=== PATIENT | female | born 1955 | race American Indian/Alaskan Native ===

== ENCOUNTER 2019-01-13 18:29 | Inpatient (IN) | payer BC, MEDICAID, MEDICARE ==
[2019-01-13 18:36] VITALS: BMI 26.2
--- NOTE | 2019-01-13 19:16 | C.PDOC ---
History Of Present Illness Patient presents to the ER with elevated blood pressure, dizziness, and headache. She reports feeling intermittently jittery for the past 2 weeks, saw her PMD who sent her in for evaluation. Denies chest pain, SOB, or palpitations. Time Seen by Provider: 01/13/19 19:16 Chief Complaint (Nursing): High Blood Pressure History Per: Patient History/Exam Limitations: no limitations Onset/Duration Of Symptoms: Days Current Symptoms Are (Timing): Still Present Associated Symptoms: Dizziness, Headache Severity: Moderate Pain Scale Rating Of: 4 Recent travel outside of the [place]: No Additional History Per: Family Past Medical History Reviewed: Historical Data, Nursing Documentation, Vital Signs Vital Signs: Last Vital Signs Temp 98.8 F 01/13/19 18:36 Pulse 68 01/13/19 18:36 Resp 20 01/13/19 18:36 BP 157/88 H 01/13/19 18:36 Pulse Ox 99 01/13/19 18:36 Primary Care Provider: Nathanael Cannon - Medical History PMH: Anxiety, Arthritis, Back Problems, Bronchitis, Cardia Arrhythmia (told to have had irregular rhythm in the past), COPD, CVA (?), Depression, HTN, Hypothyroidism (denies), TIA Denies: Chronic Kidney Disease Surgical History: Cholecystectomy - [facility] APPLICATION OF SPLINT (03/14/15) Family History: States: No Known Family Hx - Social History Hx Tobacco Use: No Hx Alcohol Use: No Hx Substance Use: No - Immunization History Hx Tetanus Toxoid Vaccination: No Hx Influenza Vaccination: No Hx Pneumococcal Vaccination: No Review Of Systems Constitutional: Negative for: Fever, Chills Eyes: Negative for: Redness Cardiovascular: Negative for: Chest Pain, Palpitations Respiratory: Negative for: Cough, Shortness of Breath Gastrointestinal: Negative for: Nausea, Vomiting Genitourinary: Negative for: Dysuria Musculoskeletal: Negative for: Back Pain Skin: Negative for: Rash Neurological: Positive for: Headache, Dizziness. Negative for: Weakness, Numbness Psych: Negative for: Anxiety Physical Exam - Physical Exam Appears: Non-toxic Skin: Warm, Dry Head: Normacephalic Eye(s): bilateral: Normal Inspection, PERRL, EOMI Oral Mucosa: Moist Neck: Trachea Midline, Supple Chest: Symmetrical, No Tenderness Cardiovascular: Rhythm Regular Respiratory: No Rales, No Rhonchi, No Wheezing Gastrointestinal/Abdominal: Soft, No Tenderness Back: No CVA Tenderness Extremity: No Tenderness Extremity: Bilateral: Atraumatic, Normal Color And Temperature, Normal ROM Pulses: Left Dorsalis Pedis: Normal, Right Dorsalis Pedis: Normal Neurological/Psych: Oriented x3, Other (No focal deficit) Gait: Steady ED Course And Treatment - Laboratory Results Result Diagrams: 01/13/19 19:42 01/13/19 19:42 ECG: Interpreted By Me, Viewed By Me ECG Rhythm: Sinus Rhythm (57), 1st Degree HB, Nonspecific Changes O2 Sat by Pulse Oximetry: 99 (Room air) Pulse Ox Interpretation: Normal - Radiology CXR: Interpreted by Me, Viewed By Me CXR Interpretation: No: Infiltrates, Fracture, Pnemothorax Progress Note: CT head, EKG, blood work, CXR, and urinalysis ordered. NIHSS Stroke Scale - Date/Time Evaluation Performed Date Performed: 01/13/19 Time Performed: 19:16 When Was NIHSS Performed: Baseline - How Severe is the Stoke Level of Consciousness: 0=Alert LOC to Questions: 0=Both comments correct LOC to commands: 0=Obeys both correctly Best Gaze: 0=Normal Visual: 0=No visual loss Facial: 0=Normal Motor Arm - Left: 0=No drift Motor Arm - Right: 0=No drift Motor Leg - Left: 0=No drift Motor Leg - Right: 0=No drift Limb Ataxia: 0=Absent Sensory: 0=Normal Best Language: 0=No aphasia Dysarthia: 0=Normal articulation Extinction & Inattention (Neglect): 0=Normal, no object Score: 0 Disposition Discussed With : Nathanael Cannon Comment[facility] took over the care at 9:55 PM Doctor Will See Patient In The: Hospital Counseled Patient/Family Regarding: Studies Performed, Diagnosis - Disposition Disposition: HOSPITALIZED Disposition Time: 19:16 Condition: FAIR Forms: [facility] (Amharic) - POA Present On Arrival: None - Clinical Impression Clinical Impression: Dizziness, Hypertension, Abnormal liver enzymes - Scribe Statement The provider has reviewed the documentation as recorded by the Scribe Jl Medina All medical record entries made by the Scribe were at my direction and personally dictated by me. I have reviewed the chart and agree that the record accurately reflects my personal performance of the history, physical exam, medical decision making, and the department course for this patient. I have also personally directed, reviewed, and agree with the discharge instructions and disposition. Decision To Admit - Pt Status Changed To: Hospital Disposition Of: Observation - . Bed Request Type: Telemetry Admitting Physician: Nathanael Cannon Patient Diagnosis: Dizziness, Hypertension, Abnormal liver enzymes
[2019-01-13 19:52] LABS: BASO % 0.2 % (0.0-2.0); EOS # 0.1 K/uL (0.0-0.7); LYMPH # 1.2 K/uL (1.0-4.3); LYMPH % 19.4 % (20.0-40.0); MEAN CELL VOLUME 94.2 fL (81.0-99.0); MEAN CORPUSCULAR HGB CONC 32.9 g/dL (33.0-37.0); MEAN PLATELET VOLUME 6.5 fL (7.2-11.7); MONO # 0.3 K/uL (0.0-0.8); MONO % 4.1 % (0.0-10.0); NEUT # 4.8 K/uL (1.8-7.0); NEUT % 75.3 % (50.0-75.0); RBC 4.2 Mil/uL (3.80-5.20); RED CELL DISTRIBUTION WIDTH 13.4 % (11.5-14.5); WHITE BLOOD COUNT 6.4 K/uL (4.8-10.8)
[2019-01-13 20:01] LABS: INR 1.1; PARTIAL THROMBOPLASTIN TIME 37.8 SECONDS (21-34); PROTHROMBIN TIME 12.3 SECONDS (9.7-12.2)
[2019-01-13 20:11] LABS: ALB/GLOB RATIO 1.3 (1.0-2.1); ALBUMIN 4.2 g/dL (3.5-5.0); ALT/SGPT 196 U/L (9-52); AST/SGOT 269 U/L (14-36); BLOOD UREA NITROGEN 12 mg/dL (7-17); CALCIUM 9.4 mg/dl (8.6-10.4); GFR NON-AFRICAN AMERICAN > 60; LIPASE 65 U/L (23-300)
[2019-01-13 22:05] LABS: SQUAMOUS EPITHIAL 1 /hpf (0-5); URINE BILIRUBIN NEGATIVE (NEGATIVE); URINE BLOOD NEGATIVE (NEGATIVE); URINE CLARITY Hazy (Clear); URINE COLOR Yellow (YELLOW); URINE GLUCOSE (UA) NORMAL (Normal); URINE LEUKOCYTE ESTERASE NEG Leu/uL (Negative); URINE PROTEIN NEGATIVE (NEGATIVE)
[2019-01-13] MEDS ORDERED: Albuterol 0.083% Inhal Sol (2.5 mg/3 mL) UD IH PRN (22:13)
--- NOTE | 2019-01-14 08:06 | CT ---
Date of service: 01/13/2019 PROCEDURE: CT HEAD WITHOUT CONTRAST. HISTORY: dizziness COMPARISON: 02/01/2015 TECHNIQUE: Axial computed tomography images were obtained through the head/brain without intravenous contrast. Radiation dose: Total exam DLP = 1057.82 mGy-cm. This CT exam was performed using one or more of the following dose reduction techniques: Automated exposure control, adjustment of the mA and/or kV according to patient size, and/or use of iterative reconstruction technique. FINDINGS: HEMORRHAGE: No intracranial hemorrhage. BRAIN: No mass effect or edema. Scattered focal lucencies in the subcortical and periventricular white matter suggestive for chronic microvascular ischemic change. VENTRICLES: Unremarkable. No hydrocephalus. CALVARIUM: Unremarkable. PARANASAL SINUSES: Unremarkable as visualized. No significant inflammatory changes. MASTOID AIR CELLS: Unremarkable as visualized. No inflammatory changes. OTHER FINDINGS: None. IMPRESSION: No acute intracranial abnormality. If symptoms persists, consider correlation with MRI. A preliminary report was generated at 9:23 p.m. on 01/13/[address] Owen Orlando from [facility].
[2019-01-14] MEDS ORDERED: Albuterol 0.083% Inhal Sol (2.5 mg/3 mL) UD IH PRN (08:30)
[2019-01-14] MEDS ORDERED: Home Med 1 UNIT (Alendronate [Fosamax] 70 MG) PO SCH (10:00)
--- NOTE | 2019-01-14 10:34 | RAD ---
HISTORY: chest pain COMPARISON: Chest xray performed 01/14/16 TECHNIQUE: Chest, one view. FINDINGS: LUNGS: No focal consolidation. Please note that chest x-ray has limited sensitivity for the detection of pulmonary masses. PLEURA: No significant pleural effusion identified. No definite pneumothorax . CARDIOVASCULAR: Mild cardiomegaly. Atherosclerotic calcifications of the aorta present. OSSEOUS STRUCTURES: No acute osseous abnormality identified. VISUALIZED UPPER ABDOMEN: Unremarkable. OTHER FINDINGS: None. IMPRESSION: No focal consolidation. Mild cardiomegaly.
--- NOTE | 2019-01-14 12:10 | CARD ---
APPROVED REPORT Date of service: 01/13/2019 EKG Measurement Heart [id number] [id number] <Conclusion> Sinus bradycardia Nonspecific T wave abnormality Abnormal ECG
[2019-01-14] MEDS ORDERED: methIMAzole 5 MG TAB PO SCH ×2 (22:00)
[2019-01-14] MEDS ORDERED: ZOLPIDEM PO SCH ×2 (22:00)
--- NOTE | 2019-01-14 22:08 | CP.PCM.HP ---
History of Present Illness - History of Present Illness History of Present Illness: cc: labile hypertension, unsteady gait, obtunded mentation, anorexia HPI: Pt is a 63 yo AA female who called my office 01/13/2019 around 3 pm wherein reported that pt's BP was going up and down from a low of 120s to 130s to 150s, then 190s systolic. For the last 4 months, I had started receiving these calls and had managed to reassure pt until the next scheduled office visit, usually every 3 months. Pt had been my patient for the last ~3-4 years, and when she first came to my office, was having the same issues with headache, dizziness, inability to get up out of bed, slow & almost slurred speech. On hindsight, pt seems to have regressed again to that point after steadily improving over several years. Present on Admission - Present on Admission Any Indicators Present on Admission: No History of DVT/PE: No History of Uncontrolled Diabetes: No Urinary Catheter: No Decubitus Ulcer Present: No History Surgical Site Infection Following: None Review of Systems - Review of Systems Systems not reviewed;Unavailable: Unstable Vital Signs, Altered Mental Status, I ntoxicated - Constitutional Constitutional: Anorexia, Daytime Sleepiness, Fatigue, Frequent Falls, Headache, Lethargy, Weakness - EENT Eyes: Blind Spots, Other Visual Disturbances Nose/Mouth/Throat: Nasal Congestion, Post Nasal Drip, Sore Throat - Breasts Breasts: Other (no changes reported to resemble peau d'orange, retraction, discharge, color change, friability) - Respiratory Respiratory: Cough, Chest Congestion - Gastrointestinal Gastrointestinal: Bloating, Change in Bowel Habits, Coffee Ground Emesis, Constipation, Cramping, Early Satiety, Heartburn Additional comments: no heartburn, no burning at epigastric area, coughing when lying down - Genitourinary Genitourinary: Urinary Incontinence Additional comments: + stress urinary incontinence - Reproductive: Female Reproductive:Female: Amenorrhea (menopausal) - Menstruation Menstruation: Amenorrhea - Musculoskeletal Musculoskeletal: Back Pain, Muscle Weakness, Myalgias - Integumentary Integumentary: Dry Skin, Skin Pain Past Patient History - Infectious Disease Hx of Infectious Diseases: None - Tetanus Immunizations Tetanus Immunization: Unknown - Past Medical History & Family History Past Medical History?: Yes - Past Social History Smoking Status: Never Smoked Chewing Tobacco Use: No Cigar Use: No Alcohol: Social Drugs: Prescription medications Home Situation {Lives}: With Family, Other (with ) Domestic Violence: Negative - CARDIAC Hx Hypertension: Yes Hx Hypotension: Yes Hx Peripheral Edema: Yes - PULMONARY Hx Chronic Obstructive Pulmonary Disease (COPD): Yes - NEUROLOGICAL Hx Dizziness: Yes Hx Migraine: Yes Hx Syncope: Yes (near syncope only) Hx Transient Ischemic Attacks (TIA): Yes Other/Comment: may be hypochondriacal or 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 - HEENT Hx HEENT Problems: No Hx Sinusitis: Yes - RENAL Hx Chronic Kidney Disease: No - ENDOCRINE/METABOLIC Hx Hypothyroidism: Yes (denies) - HEMATOLOGICAL/ONCOLOGICAL Hx Blood Disorders: No - INTEGUMENTARY Hx Dermatological Problems: No - MUSCULOSKELETAL/RHEUMATOLOGICAL Hx Arthritis: Yes Other/Comment: has frequent myalgia with no identifiable etiology - GASTROINTESTINAL Hx Gastrointestinal Disorders: Yes Hx Gastritis: Yes Hx Gastroesophageal Reflux: Yes Hx Nausea: Yes Other/Comment: Gall Stones - GENITOURINARY/GYNECOLOGICAL Hx Genitourinary Disorders: No - PSYCHIATRIC Hx Anxiety: Yes Hx Depression: Yes Hx Panic Symptoms: Yes Hx Paranoia: Yes Hx Substance Use: No - SURGICAL HISTORY Hx Cholecystectomy: Yes - ANESTHESIA Hx Anesthesia: Yes Hx Anesthesia Reactions: No Hx Malignant Hyperthermia: No Meds Allergies/Adverse Reactions: Allergies Allergy/AdvReac Type Severity Reaction Status Date / Time Penicillins Allergy Verified 01/13/19 18:36 Physical Exam - Constitutional Appears: Well, In Acute Distress Additional comments: though not pain, appears more disoriented - Head Exam Head Exam: ATRAUMATIC, NORMAL INSPECTION, NORMOCEPHALIC - Eye Exam Eye Exam: EOMI, PERRL Pupil Exam: NORMAL ACCOMODATION, PERRL Additional comments: eyelids half-closed and unable to focus well, appears over dosing on something - ENT Exam ENT Exam: Mucous Membranes Dry - Neck Exam Neck exam: Positive for: Full Rom, Normal Inspection - Respiratory Exam Respiratory Exam: Clear to Auscultation Bilateral, NORMAL BREATHING PATTERN - Cardiovascular Exam Cardiovascular Exam: REGULAR RHYTHM, RRR - GI/Abdominal Exam GI & Abdominal Exam: Normal Bowel Sounds, Soft. absent: Tenderness - Rectal Exam Rectal Exam: NORMAL INSPECTION - Exam Exam: Circumcision, NORMAL INSPECTION External exam: NORMAL EXTERNAL EXAM Speculum exam: NORMAL SPECULUM EXAM Bimanual exam: NORMAL BIMANUAL EXAM - Extremities Exam Extremities exam: Positive for: normal inspection - Back Exam Back exam: NORMAL INSPECTION - Neurological Exam Neurological exam: Alert, CN II-XII Intact, Normal Gait, Oriented x3, Reflexes Normal - Psychiatric Exam Psychiatric exam: Normal Affect, Normal Mood - Skin Skin Exam: Dry, Intact, Normal Color, Warm Results - Vital Signs Recent Vital Signs: Last Vital Signs Temp 99.4 F 01/14/19 15:00 Pulse 72 01/14/19 16:30 Resp 20 01/14/19 15:00 BP 115/71 01/14/19 15:00 Pulse Ox 97 01/14/19 16:30 - Labs Result Diagrams: 01/15/19 08:24 01/15/19 08:24 Labs: Laboratory Results - last 24 hr 01/13/19 21:18 Urine Color Yellow Urine Clarity Hazy Urine pH 5.0 Ur Specific [place] 1.018 Urine Protein Negative Urine Glucose (UA) Normal Urine Ketones Negative Urine Blood Negative Urine Nitrate Negative Urine Bilirubin Negative Urine Urobilinogen 2.0 H Ur Leukocyte Esterase Neg Urine WBC (Auto) 2 Urine RBC (Auto) 1 Ur Squamous Epith Cells 1 Assessment & Plan (1) Dizziness Assessment and Plan: present and unable to stand without assistance Status: Acute (2) Hypertension Assessment and Plan: very labile bp with sbp from 130s to 190s withn a miute or so. ? overmedicated as well? Pt does not appear to read instructions on botles Status: Chronic Priority: Medium (3) Abnormal finding on EKG Assessment and Plan: HR bradycardic, when it's always been normal with me at the office. Status: Acute Priority: High (4) Uncontrolled hypertension Assessment and Plan: will discontinue some meds and see if things will normalize Status: Acute Priority: High (5) CVA (cerebral vascular accident) Assessment and Plan: remote past. laura consult Neurology for pt evaluation Status: Chronic Priority: Medium (6) Neuropathy Assessment and Plan: difficult to ascertain whether pain is from not enough movement/exercise since pt's caters to pt's every whim Status: Chronic Priority: High (7) Abnormal liver enzymes Assessment and Plan: suspect prob from excessive intake of meds. will dic meds that i think are optinal and observe result with pt's labs. Status: Acute Decision To Admit - Pt Status Changed To: Hospital Disposition Of: Observation - Admit Certification Admit to Inpatient:: Admit pt to lelemetry for observation. Pt's condition currently unstable and unsafe for her to go home since she will be alone most days and likely to injure herself in this conditon. Will follow pt's course and see if pt improves with conservative mgt. - . Bed Request Type: Telemetry
--- NOTE | 2019-01-14 22:22 | CON ---
DATE: 01/14/2019 REASON FOR CONSULTATION: Dizziness. HISTORY OF PRESENT ILLNESS: The patient is a 63-year-old female who has been asked for evaluation of dizziness. The patient says yesterday she started experiencing dizziness which is described as a spinning sensation as well as lightheaded feeling. She was nauseous with it. She was also experiencing some blurred vision. This morning, she is feeling a lot better. Denies any focal weakness in her arms or legs. Denies any loss of vision. REVIEW OF SYSTEMS: Denies any headaches, chest pain, shortness of breath, abdominal pain, constipation, diarrhea, cough, sputum production, focal weakness in the arms or legs, hallucination, skin rash. PAST MEDICAL HISTORY: Includes hypertension, COPD, anxiety. MEDICATIONS: Her medications at home included amlodipine, Ambien, Lyrica 50 mg daily, Bystolic, methimazole, Losartan, Neurontin, aspirin, Fosamax, albuterol, Tylenol with Codeine, Xanax, Topamax, Losartan, aspirin, alendronate, alprazolam. ALLERGIES: PENICILLIN. SOCIAL HISTORY: Denies smoking, use of alcohol or use of any illicit drugs. FAMILY HISTORY: Reviewed and noncontributory to the case. PHYSICAL EXAMINATION: GENERAL: The patient is an elderly female, lying on the bed, in no acute distress. VITAL SIGNS: Blood pressure is 153/81, heart rate 71 per minute, breathing at the rate of 16 per minute, temperature 97.9 degrees Fahrenheit. HEENT: Normocephalic, atraumatic. NECK: Supple. There are no carotid bruits. LUNGS: Clear. CVS: S1 and S2 audible. No murmurs. ABDOMEN: Soft, nontender. Bowel sounds present. NEUROLOGIC: Mental status: The patient is awake and alert; oriented to time, place, and person. Speech is fluent. Naming and repetition are normal. Memory and cognition are intact. Cranial nerve examination: Pupils are 4 mm bilaterally, reactive to light. Visual mehta are full. Extraocular movements are intact. There is no facial asymmetry. Palate is upgoing bilaterally and tongue is midline. Motor examination: Tone is normal. Power is 5/5 bilaterally in all extremities. Reflexes are +1 and symmetrical. Plantars are downgoing bilaterally. Cerebellar examination: [id number] shows no dysmetria. Gait is deferred at the moment. No asterixis is seen. LABORATORY DATA: Reviewed showed WBC 6.4, hemoglobin 13, hematocrit of 39.6, and platelets of 383. Her INR is 1.1. Sodium is 137, potassium 4, chloride 101, carbon dioxide 30, BUN of 12, creatinine of 0.5, and glucose of 121. Her AST is 269, ALT is 196. The patient had a CT scan of the head done which shows no acute intracranial abnormality. IMPRESSION: Dizziness, likely secondary to labyrinthine dysfunction, any central etiology to be ruled out. RECOMMENDATIONS: 1. The patient to have an MRI of the brain without contrast. 2. The patient to be started on low dose of meclizine. 3. The patient to be started on physical therapy for gait and balance. 4. The patient will be worked up for her elevated LFTs. 5. Please continue the treatment and supportive care. Thank you for the opportunity to participate in the care of this patient. Alondra Montalvo MD
[2019-01-15 08:42] LABS: MEAN CELL VOLUME 92.6 fL (81.0-99.0); MEAN CORPUSCULAR HEMOGLOBIN 31.6 pg (27.0-31.0); MEAN CORPUSCULAR HGB CONC 34.2 g/dL (33.0-37.0); MEAN PLATELET VOLUME 6.7 fL (7.2-11.7); RBC 3.79 Mil/uL (3.80-5.20); RED CELL DISTRIBUTION WIDTH 13.4 % (11.5-14.5)
[2019-01-15 08:44] LABS: IRON 72 ug/dL (37-170)
[2019-01-15 08:54] LABS: % IRON SATURATION 27 (20-55); TOTAL IRON BINDING CAPACITY 263 ug/dL (250-450)
[2019-01-15 08:59] LABS: ALBUMIN 3.9 g/dL (3.5-5.0); BLOOD UREA NITROGEN 11 mg/dL (7-17); CALCIUM 9.3 mg/dl (8.6-10.4); GFR NON-AFRICAN AMERICAN > 60
[2019-01-15 09:00] LABS: ALB/GLOB RATIO 1.3 (1.0-2.1); ALT/SGPT 105 U/L (9-52); AST/SGOT 71 U/L (14-36); BILIRUBIN,DIRECT 0.1 mg/dL (0.0-0.4)
[2019-01-15 09:03] LABS: FREE T4 1.03 ng/dL (0.78-2.19)
--- NOTE | 2019-01-15 16:32 | MRI ---
Date of service: 01/15/2019 PROCEDURE: MRI BRAIN WITHOUT CONTRAST HISTORY: Dizziness COMPARISON: CT head without contrast from 01/13/2019. TECHNIQUE: Multiplanar, multisequence MR images of the brain were obtained without intravenous contrast enhancement. FINDINGS: HEMORRHAGE: None DWI: No evidence of an acute or early subacute infarction. BRAIN PARENCHYMA: There are mild chronic microangiopathic changes. There is no mass, mass effect or abnormal extra-axial fluid collection. There is no territorial infarction. There is an empty sella. VENTRICLES: There is mild age-related global parenchymal volume loss and proportionate enlargement of the ventricles and cortical sulci. CRANIUM: Unremarkable. ORBITS: Grossly unremarkable. PARANASAL SINUSES/MASTOIDS: Clear VASCULAR SYSTEM: Skull base flow voids intact. OTHER FINDINGS: None. IMPRESSION: No acute intracranial abnormality. Mild chronic microangiopathic changes and mild age-related global parenchymal volume loss.
--- NOTE | 2019-01-16 05:52 | CP.PCM.PN ---
Subjective - Date & Time of Evaluation Date of Evaluation: 01/15/19 Time of Evaluation: 18:30 - Subjective Subjective: Pt seen and examined. Appears more awake, more alive than ever. Had consulted Neurology to whom I referrred pt fromt he office. Suggests MRIof he brain to complete work up. Agree with test.. Pt reports that she gets claustrophobic andmay need premedication. Otherwise, pt has been tolerating foods given. Weakness and dizziness decreased though per PT, pt still has balance issues. Pt has reported to me in the past of her legs just giving way without trippping or losing her footing. Said falls not preceded by sudden knee pain or anything of the sort. Awaiting results of MRI and as of this time, leaning towards TCU transfer if pt will be accepted. Objective - Vital Signs/Intake and Output Vital Signs (last 24 hours): Temp Pulse Resp BP Pulse Ox 98.4 F 78 18 130/77 98 01/16/19 04:39 01/16/19 04:39 01/16/19 04:39 01/16/19 04:39 01/16/19 04:39 Intake and Output: 01/15/19 01/16/19 18:59 06:59 Intake Total 200 450 Balance 200 450 - Medications Medications: Current Medications Acetaminophen (Tylenol 325mg Tab) 650 mg PO Q6 PRN PRN Reason: 3-8 pain scale Last Admin: 01/15/19 20:32 Dose: 650 mg Albuterol Sulfate (Albuterol 0.083% Inhal Yanni (2.5 Mg/3 Ml) Ud) 2.5 mg IH RQ4 PRN PRN Reason: Shortness of Breath Alprazolam (Xanax) 1 mg PO HS [facility] Last Admin: 01/15/19 21:14 Dose: 1 mg Alprazolam (Xanax) 1 mg PO Q6 PRN PRN Reason: Anxiety Last Admin: 01/14/19 00:25 Dose: 1 mg Amlodipine Besylate (Norvasc) 5 mg PO DAILY [facility] Last Admin: 01/15/19 10:27 Dose: 5 mg Heparin Sodium (Porcine) (Heparin) 5,000 units SC Q12 [facility] Last Admin: 01/15/19 21:14 Dose: 5,000 units Lorazepam (Ativan) 1 mg IVP ONCE PRN PRN Reason: Anxiety Last Admin: 01/15/19 13:48 Dose: 1 mg Losartan Potassium (Cozaar) 100 mg PO DAILY [facility] Last Admin: 01/15/19 10:26 Dose: 100 mg Meclizine HCl (Antivert) 12.5 mg PO Q8 [facility] Last Admin: 01/16/19 05:09 Dose: 12.5 mg Sertraline HCl (Zoloft) 25 mg PO DAILY [facility] - Labs Labs: 01/15/19 08:24 01/15/19 08:24 PT 12.3 SECONDS (9.7-12.2) H 01/13/19 19:42 INR 1.1 01/13/19 19:42 APTT 37.8 SECONDS (21-34) H 01/13/19 19:42 - Constitutional Appears: Well, No Acute Distress - Head Exam Head Exam: ATRAUMATIC, NORMAL INSPECTION, NORMOCEPHALIC - Eye Exam Eye Exam: EOMI, Normal appearance, PERRL Pupil Exam: NORMAL ACCOMODATION, PERRL - ENT Exam ENT Exam: Mucous Membranes Moist, Normal Exam - Neck Exam Neck Exam: Full ROM, Normal Inspection. absent: Lymphadenopathy - Respiratory Exam Respiratory Exam: Clear to Ausculation Bilateral, NORMAL BREATHING PATTERN - Cardiovascular Exam Cardiovascular Exam: REGULAR RHYTHM, +S1, +S2. absent: Murmur - GI/Abdominal Exam GI & Abdominal Exam: Soft, Normal Bowel Sounds. absent: Tenderness - Rectal Exam Rectal Exam: Deferred - Exam Bimanual exam: NORMAL BIMANUAL EXAM - Extremities Exam Extremities Exam: Normal Capillary Refill, Normal Inspection. absent: Joint Swelling, Pedal Edema - Back Exam Back Exam: NORMAL INSPECTION - Neurological Exam Neurological Exam: Abnormal Gait, Alert, Awake, CN II-XII Intact, Oriented x3 Neuro motor strength exam: Left Upper Extremity: 4, Right Upper Extremity: 4, Left Lower Extremity: 3, Right Lower Extremity: 3 - Psychiatric Exam Psychiatric exam: Normal Affect, Normal Mood - Skin Skin Exam: Dry, Intact, Normal Color, Warm Assessment and Plan (1) Dizziness Assessment & Plan: appears to be lessening, though still needs assistance with ambulation as patient is unsure of her footing Status: Acute (2) Uncontrolled hypertension Assessment & Plan: stabilizing though with wide variation dependent on movement Status: Chronic (3) Abnormal liver enzymes Assessment & Plan: improved and AST decreased by 2/3, ALT by 1/2 Status: Acute (4) Neurologic gait dysfunction Status: Acute
[2019-01-16 07:58] LABS: BASO % 0.6 % (0.0-2.0); EOS # 0.1 K/uL (0.0-0.7); EOS % 1.5 % (0.0-4.0); LYMPH # 2.4 K/uL (1.0-4.3); LYMPH % 34.1 % (20.0-40.0); MEAN CORPUSCULAR HEMOGLOBIN 31.5 pg (27.0-31.0); MEAN CORPUSCULAR HGB CONC 33.8 g/dL (33.0-37.0); MEAN PLATELET VOLUME 6.7 fL (7.2-11.7); MONO # 0.4 K/uL (0.0-0.8); MONO % 5.7 % (0.0-10.0); NEUT # 4.1 K/uL (1.8-7.0); NEUT % 58.1 % (50.0-75.0); RBC 3.81 Mil/uL (3.80-5.20); RED CELL DISTRIBUTION WIDTH 13.2 % (11.5-14.5)
[2019-01-16 08:13] LABS: ALB/GLOB RATIO 1.6 (1.0-2.1); BILIRUBIN,DIRECT 0.2 mg/dL (0.0-0.4)
[2019-01-16 13:45] VITALS: RESP 20
--- NOTE | 2019-01-17 16:49 | CP.PCM.PN ---
Subjective - Date & Time of Evaluation Date of Evaluation: 01/16/19 Time of Evaluation: 17:00 - Subjective Subjective: These are the notes for Socorro Flood during her [facility] admission on Jan 16 2019: Patient seen and examine the bedside appears to be steadily improving. Still complains of gait instability. blood pressure measurements appear to have stabilized in the low 120s or slightly less. Patient has tolerated all males giving her and has had no vomiting since admission. Clinically patient feels better. Advise patient of plans for discharge. Have been evaluated on a daily basis by physical therapy and they recommend TCU admission the order for which was placed yesterday. Because of the time involved patient may need to wait until Friday for placement should she be accepted at said unit. Otherwise patient feels improved and would like a solution to her balance and gait issues. Objective - Vital Signs/Intake and Output Vital Signs (last 24 hours): Temp Pulse Resp BP Pulse Ox 98.4 F 102 H 20 118/73 98 01/17/19 15:00 01/17/19 15:45 01/17/19 15:00 01/17/19 15:00 01/17/19 15:00 Intake and Output: 01/17/19 01/17/19 06:59 18:59 Intake Total 400 Balance 400 - Medications Medications: Current Medications Acetaminophen (Tylenol 325mg Tab) 650 mg PO Q6 PRN PRN Reason: 3-8 pain scale Last Admin: 01/15/19 20:32 Dose: 650 mg Albuterol Sulfate (Albuterol 0.083% Inhal Yanni (2.5 Mg/3 Ml) Ud) 2.5 mg IH RQ4 PRN PRN Reason: Shortness of Breath Alprazolam (Xanax) 1 mg PO HS [place] Last Admin: 01/16/19 21:40 Dose: 1 mg Alprazolam (Xanax) 1 mg PO Q6 PRN PRN Reason: Anxiety Last Admin: 01/14/19 00:25 Dose: 1 mg Amlodipine Besylate (Norvasc) 5 mg PO DAILY [place] Lorazepam (Ativan) 1 mg IVP ONCE PRN PRN Reason: Anxiety Last Admin: 01/15/19 13:48 Dose: 1 mg Losartan Potassium (Cozaar) 100 mg PO DAILY [place] Last Admin: 01/17/19 12:22 Dose: 100 mg Meclizine HCl (Antivert) 12.5 mg PO Q8 [facility] Last Admin: 01/17/19 13:15 Dose: 12.5 mg Sertraline HCl (Zoloft) 25 mg PO DAILY [facility] Last Admin: 01/17/19 12:22 Dose: 25 mg - Labs Labs: 01/16/19 06:36 01/15/19 08:24 PT 12.3 SECONDS (9.7-12.2) H 01/13/19 19:42 INR 1.1 01/13/19 19:42 APTT 37.8 SECONDS (21-34) H 01/13/19 19:42 - Constitutional Appears: Well - Head Exam Head Exam: ATRAUMATIC, NORMAL INSPECTION, NORMOCEPHALIC - Eye Exam Eye Exam: EOMI, Normal appearance, PERRL Pupil Exam: NORMAL ACCOMODATION, PERRL - ENT Exam ENT Exam: Mucous Membranes Moist, Normal Exam - Neck Exam Neck Exam: Full ROM, Normal Inspection. absent: Lymphadenopathy - Respiratory Exam Respiratory Exam: Clear to Ausculation Bilateral, NORMAL BREATHING PATTERN - Cardiovascular Exam Cardiovascular Exam: REGULAR RHYTHM, +S1, +S2. absent: Murmur - GI/Abdominal Exam GI & Abdominal Exam: Soft, Normal Bowel Sounds. absent: Tenderness - Rectal Exam Rectal Exam: Deferred - Extremities Exam Extremities Exam: Full ROM, Normal Capillary Refill, Normal Inspection. absent: Joint Swelling, Pedal Edema - Back Exam Back Exam: NORMAL INSPECTION - Neurological Exam Neurological Exam: Alert, Awake, CN II-XII Intact, Normal Gait, Oriented x3 Neuro motor strength exam: Left Upper Extremity: 4, Right Upper Extremity: 4, Left Lower Extremity: 4, Right Lower Extremity: 4 - Psychiatric Exam Psychiatric exam: Normal Affect, Normal Mood - Skin Skin Exam: Dry, Intact, Normal Color, Warm Assessment and Plan (1) Dizziness Assessment & Plan: appears vertiginous in nature with improvement in symptom with meclizine. multiple medications with extrapyramidal effect plus antihypertensive meds may have contributed to patient's symptoms and disconitnuation of majority of her meds allowed her true sensorium to surface. not much complaint of dizziness now. Status: Acute (2) Neurologic gait dysfunction Assessment & Plan: No apparent focus of pain with ambulation, at least not a central lesion. TCU recommended by PT and agree if pt agrees. Otherwise will send home with services. Status: Acute
[2019-01-18 07:42] VITALS: O2SAT 99
[2019-01-18 18:01] VITALS: BP 102/68; PULSE 84; TEMP 98.5
--- NOTE | 2019-01-18 21:35 | PN ---
DATE: 01/18/2019 SUBJECTIVE: The patient is sitting on the chair in no acute distress. Dizziness is better. Denies any headaches. PHYSICAL EXAMINATION: VITAL SIGNS: Blood pressure is 102/68, heart rate 84 per minute, breathing at the rate of 16 per minute, temperature is 98.5 degrees Fahrenheit. HEENT: Head is normocephalic and atraumatic. NECK: Supple. There are no carotid bruits. LUNGS: Clear. CARDIOVASCULAR SYSTEM: S1 and S2 audible. No murmurs. ABDOMEN: Soft and nontender. Bowel sounds are present. NEUROLOGIC: Mental Status: The patient is awake, alert, oriented to time, place, and person. Speech is fluent. Naming and repetition normal. Memory and cognition are intact. Cranial nerve examination: Pupils are 3 mm bilaterally, reactive to light. Visual mehta are full. Extraocular movements are intact. There is no facial asymmetry. Palate is upgoing bilaterally. Tongue is midline. Motor examination: Tone is normal. Power is 5/5 bilaterally in all extremities. Plantars are downgoing bilaterally. LABORATORY DATA: Labs are reviewed. MRI of the brain shows no acute intracranial pathology. 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 PLAN AND RECOMMENDATIONS: 1. The patient is to be continued on meclizine . 2. The patient's dizziness is significantly better. 3. The patient may be discharged from neurologic standpoint with outpatient followup. Thank you for the opportunity to participate in the care of this patient. Alondra Montalvo MD
[2019-01-20] MEDS ORDERED: Home Med 1 UNIT (Alendronate [Fosamax] 70 MG) PO SCH (10:00)
--- NOTE | 2019-01-21 05:16 | CP.PCM.DIS ---
Provider - Provider Date of Admission: 01/15/19 17:42 Attending physician: Nathanael Cannon MD Primary care physician: Nathanael Cannon MD Consults: 01/14/19 10:15 Physician Consult Routine Comment: Consulting Provider: Alondra Montalvo Consulting Physician: Alondra Montalvo Reason for Consult: r/o hepatic encephalopathy 01/15/19 17:50 Discharge Planning [Case Management Referral] Routine Comment: Physician Instructions: pls refer to TCU for possible admissoin REN Reason For Exam: TCU referral per PT recommendation Reason for Referral: Discharge Planning Time Spent in preparation of Discharge (in minutes): 45 (Discharge Summary for Socorro Flood, Discharge Date 01/18/2019) Diagnosis - Discharge Diagnosis (1) Dizziness Status: Acute Comment: intermittently over the last 2 years although the increasing medicatons pt takes from various doctors have not improved her course, and made my efforts to decrease her pain meds useles. (2) Neurologic gait dysfunction Status: Acute Comment: no apparent organic lesion (3) Overdose by acetaminophen Status: Acute (4) Sedative overdose Status: Acute Comment: discontinued all of pt's medications that may be making her sleepy and obtunded. Pt showed slight imrovement the first day, but the 2nd day produced a whole different personwho was wide awake and able to fend for herself (5) Abnormal liver enzymes Status: Acute Priority: Medium Comment: prob 2ndry to excessive tylenol intake (6) Uncontrolled hypertension Status: Resolved Priority: High Hospital Course - Lab Results Lab Results: Most Recent Lab Values WBC 7.0 K/uL (4.8-10.8) 01/16/19 06:36 RBC 3.81 Mil/uL (3.80-5.20) 01/16/19 06:36 Hgb 12.0 g/dL (11.0-16.0) 01/16/19 06:36 Hct 35.4 % (34.0-47.0) 01/16/19 06:36 MCV 93.0 fL (81.0-99.0) 01/16/19 06:36 MCH 31.5 pg (27.0-31.0) H 01/16/19 06:36 MCHC 33.8 g/dL (33.0-37.0) 01/16/19 06:36 RDW 13.2 % (11.5-14.5) 01/16/19 06:36 Plt Count 390 K/uL (130-400) 01/16/19 06:36 MPV 6.7 fL (7.2-11.7) L 01/16/19 06:36 Neut % (Auto) 58.1 % (50.0-75.0) 01/16/19 06:36 Lymph % (Auto) 34.1 % (20.0-40.0) 01/16/19 06:36 [place] % (Auto) 5.7 % (0.0-10.0) 01/16/19 06:36 Eos % (Auto) 1.5 % (0.0-4.0) 01/16/19 06:36 Baso % (Auto) 0.6 % (0.0-2.0) 01/16/19 06:36 Neut # (Auto) 4.1 K/uL (1.8-7.0) 01/16/19 06:36 Lymph # (Auto) 2.4 K/uL (1.0-4.3) 01/16/19 06:36 [place] # (Auto) 0.4 K/uL (0.0-0.8) 01/16/19 06:36 Eos # (Auto) 0.1 K/uL (0.0-0.7) 01/16/19 06:36 Baso # (Auto) 0.0 K/uL (0.0-0.2) 01/16/19 06:36 PT 12.3 SECONDS (9.7-12.2) H 01/13/19 19:42 INR 1.1 01/13/19 19:42 APTT 37.8 SECONDS (21-34) H 01/13/19 19:42 Sodium 139 mmol/L (132-148) 01/15/19 08:24 Potassium 3.6 mmol/L (3.6-5.2) 01/15/19 08:24 Chloride 105 mmol/L (98-107) 01/15/19 08:24 Carbon Dioxide 26 mmol/L (22-30) 01/15/19 08:24 Anion Gap 12 (10-20) 01/15/19 08:24 BUN 11 mg/dL (7-17) 01/15/19 08:24 Creatinine 0.6 mg/dL (0.7-1.2) L 01/15/19 08:24 Est GFR ( Amer) > 60 01/15/19 08:24 Est GFR (Non-Af Amer) > 60 01/15/19 08:24 Random Glucose 84 mg/dL (65-105) D 01/15/19 08:24 Serum Osmolality 298 mosm/kg (272-300) 01/15/19 08:24 Calcium 9.3 mg/dl (8.6-10.4) 01/15/19 08:24 Iron 72 ug/dL (37-170) 01/15/19 08:24 TIBC 263 ug/dL (250-450) 01/15/19 08:24 % Saturation 27 (20-55) 01/15/19 08:24 Ferritin 112.0 ng/mL 01/15/19 08:24 Total Bilirubin 0.6 mg/dL (0.2-1.3) 01/16/19 06:36 Direct Bilirubin 0.2 mg/dL (0.0-0.4) 01/16/19 06:36 AST 46 U/L (14-36) H D 01/16/19 06:36 ALT 81 U/L (9-52) H D 01/16/19 06:36 Alkaline Phosphatase 84 U/L (38-126) 01/16/19 06:36 Troponin I < 0.0120 ng/mL (0.00-0.120) 01/13/19 19:42 Total Protein 6.5 g/dL (6.3-8.3) 01/16/19 06:36 Albumin 4.0 g/dL (3.5-5.0) 01/16/19 06:36 Globulin 2.5 gm/dL (2.2-3.9) 01/16/19 06:36 Albumin/Globulin Ratio 1.6 (1.0-2.1) 01/16/19 06:36 Lipase 65 U/L (23-300) 01/13/19 19:42 Vitamin B12 > 1000 pg/mL (239-931) H 01/15/19 08:24 Free T4 1.03 ng/dL (0.78-2.19) 01/15/19 08:24 TSH 3rd Generation 0.97 mIU/L (0.46-4.68) 01/15/19 08:24 Urine Color Yellow (YELLOW) 01/13/19 21:18 Urine Clarity Hazy (Clear) 01/13/19 21:18 Urine pH 5.0 (5.0-8.0) 01/13/19 21:18 Ur Specific [place] 1.018 (1.003-1.030) 01/13/19 21:18 Urine Protein Negative mg/dL (NEGATIVE) 01/13/19 21:18 Urine Glucose (UA) Normal mg/dL (Normal) 01/13/19 21:18 Urine Ketones Negative mg/dL (NEGATIVE) 01/13/19 21:18 Urine Blood Negative (NEGATIVE) 01/13/19 21:18 Urine Nitrate Negative (NEGATIVE) 01/13/19 21:18 Urine Bilirubin Negative (NEGATIVE) 01/13/19 21:18 Urine Urobilinogen 2.0 mg/dL (0.2-1.0) H 01/13/19 21:18 Ur Leukocyte Esterase Neg Tri/uL (Negative) 01/13/19 21:18 Urine WBC (Auto) 2 /hpf (0-5) 01/13/19 21:18 Urine RBC (Auto) 1 /hpf (0-3) 01/13/19 21:18 Ur Squamous Epith Cells 1 /hpf (0-5) 01/13/19 21:18 - Hospital Course Hospital Course: Patient was admitted on the of this month after she called the office and complained of being unsteady on her feet unable to maintain an erect posture feeling very weak had no appetite and was constantly having headache and dizziness. I had seen the patient 2 weeks prior Patient was admitted on the of this month after she called the office and complained of being unsteady on her feet unable to maintain an erect posture feeling very weak had no appetite and was constantly having headache and dizziness. I had seen the patient previously to and at the time she could barely keep her eyes open and appeared to be heavily sedated. Had been working on getting her off her medications but she always put my efforts and head one reason or another that would require a narcotic analgesic. When she called today with her story I know that she had taken more of more of these pain meds despite being uncalled for. neurology consult was obtained but at the same time cutting patients centrally acting medications to decrease any extrapyramidal effects.. Patient did not have any seizures or severe tremors or chills. patient regained her appetite and was able to ambulate with steadier gait. patient was originally recommended to go to TCU but since the referral or admission and possible acceptance did not occur Friday, I decided to see what would happen by keeping her over the weekend By Friday patient had regained her strength and physical therapy augusto .[id number] mmendations were for patient to be discharged home with Home Services. 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 Patient was admitted on the of this month after she called the office and complained of being unsteady on her feet unable to maintain an erect posture feeling very weak had no appetite and was constantly having headache and dizziness. I had seen the patient previously to and at the time she could barely keep her eyes open and appeared to be heavily sedated. Had been working on getting her off her medications but she always put my efforts and head one reason or another that would require a narcotic analgesic. When she called today with her story I know that she had taken more of more of these pain meds despite being uncalled for. neurology consult was obtained but at the same time cutting patients centrally acting medications to decrease any extrapyramidal effects.. Patient did not have any seizures or severe tremors or chills. patient regained her appetite and was able to ambulate with steadier gait. patient was originally recommended to go to TCU but since the referral or admission and possible acceptance did not occur Friday, I decided to see what would happen by keeping her over the weekend By Friday patient had regained her strength and physical therapy augusto .[id number] mmendations were for patient to be discharged home with Home Services. 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 Patient was admitted on the of this month after she called the office and complained of being unsteady on her feet unable to maintain an erect posture feeling very weak had no appetite and was constantly having headache and dizziness. I had seen the patient previously to and at the time she could barely keep her eyes open and appeared to be heavily sedated. Had been working on getting her off her medications but she always put my efforts and head one reason or another that would require a narcotic analgesic. When she called today with her story I know that she had taken more of more of these pain meds despite being uncalled for. neurology consult was obtained but at the same time cutting patients centrally acting medications to decrease any extrapyramidal effects.. Patient did not have any seizures or severe tremors or chills. patient regained her appetite and was able to ambulate with steadier gait. patient was originally recommended to go to TCU but since the referral or admission and possible acceptance did not occur Friday, I decided to see what would happen by keeping her over the weekend By Friday patient had regained her strength and physical therapy augusto .[id number] mmendations were for patient to be discharged home with Home Services. 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 previously and at the time she could barely keep her eyes open and appeared to be heavily sedated. Had been working on getting her off her medications but she always put my efforts and head one reason or another that would require a narcotic analgesic. When she called today with her story I know that she had taken more of more of these pain meds despite being uncalled for. neurology consult was obtained but at the same time cutting patients centrally acting medications to decrease any extrapyramidal effects.. Patient did not have any seizures or severe tremors or chills. patient regained her appetite and was able to ambulate with steadier gait. patient was originally recommended to go to TCU but since the referral or admission and possible acceptance did not occur Friday, I decided to see what would happen by keeping her over the weekend By Friday patient had regained her strength and physical therapy augusto .[id number] mmendations were for patient to be discharged home with Home Services. 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 Patient was admitted on the of this month after she called the office and complained of being unsteady on her feet unable to maintain an erect posture feeling very weak had no appetite and was constantly having headache and dizziness. I had seen the patient 2 weeks previously at the time she could barely keep her eyes open and appeared to be heavily sedated. Had been working on getting her off her medications but she always had one reason or another that would require a narcotic analgesic. When she called today with her story I knew that she had taken more of more of these pain meds despite being uncalled for. I obtained a neurology consult at the same time cutting patients centrally acting medications to decrease any extrapyramidal effects. Patient did not have any seizures or severe tremors or chills. She regained her appetite and was able to ambulate with steadier gait. Patient was originally recommended to go to TCU but since the referral or admission and possible acceptance did not occur Friday evening, I decided to see what would happen by keeping her over the weekend By Friday patient had regained her strength and physical therapy recommendations were for patient to be discharged home with Home Services. 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 Discharge Exam - Head Exam Head Exam: ATRAUMATIC, NORMAL INSPECTION, NORMOCEPHALIC - Eye Exam Eye Exam: EOMI, Normal appearance, PERRL Pupil Exam: NORMAL ACCOMODATION, PERRL - ENT Exam ENT Exam: Mucous Membranes Moist - Neck Exam Neck exam: Normal Inspection - Respiratory Exam Respiratory Exam: NORMAL BREATHING PATTERN, UNREMARKABLE - Cardiovascular Exam Cardiovascular Exam: REGULAR RHYTHM - GI/Abdominal Exam GI & Abdominal Exam: Normal Bowel Sounds - Rectal Exam Rectal Exam: Deferred - Extremities Exam Extremities exam: normal inspection, pedal pulses present - Back Exam Back exam: NORMAL INSPECTION - Neurological Exam Neurological exam: Alert, CN II-XII Intact, Normal Gait, Oriented x3, Reflexes Normal - Psychiatric Exam Psychiatric exam: Normal Affect, Normal Mood - Skin Skin Exam: Dry, Intact, Normal Color, Warm Discharge Plan - Follow Up Plan Condition: FAIR Disposition: HOME/ ROUTINE Instructions: Heart Healthy Diet, High Blood Pressure (DC), Syncope (Fainting) (DC), Dizziness, Nonvertigo, (DC), Hypertension (DC), Back Pain (GEN) Additional Instructions: Pls follow up at the office on Sunday, January 20, 2019 at 5 pm. Pls call the office prior to coming over. pls call and leave a message for any questions especially if you are missing any medications on the medication list given to you on this discharge from the hospital Referrals: Nathanael Cannon MD [Staff Provider] -
== END 2019-01-18 18:42 | disposition home or self-care (01) | DRG 149 ==
LOC: C.ER 18:29 → C.9E 21:53 → C.6T 22:20 → OBSVTOIN 01-15 17:42
PROVIDERS: ADMIT Family Medicine; ATTEND Family Medicine
DX: R42 Dizziness and giddiness (principal); H83.09 Labyrinthitis, unspecified ear; I10 Essential (primary) hypertension; F40.240 Claustrophobia; F22 Delusional disorders; J44.9 Chronic obstructive pulmonary disease, unspecified; K21.9 Gastro-esophageal reflux disease without esophagitis; Z86.73 Personal history of transient ischemic attack (TIA), and cerebral infarction without residual deficits; T39.1X1A Poisoning by 4-Aminophenol derivatives, accidental (unintentional), initial encounter